=== PATIENT | male | born 2000 | race African-American/Black ===

== ENCOUNTER 2018-03-07 14:55 | Emergency (ER) | payer SELFPAY ==
[~2018-03-07] VITALS: Ht 198.1 cm; Wt 86.0 kg
[2018-03-07 15:01] VITALS: BP 140/83
[2018-03-07] MEDS ORDERED: FAMOTIDINE 20MG TABLET PO STA (15:55)
[2018-03-07] MEDS ORDERED: MAGNESIUM/ALUMINUM HYDROXIDE/SIMETHICONE 30ML UDC PO STA (15:55)
[2018-03-07] MEDS ORDERED: VISCOUS LIDOCAINE 2% 15 ML UDC MM ONE (16:00)
== END 2018-03-07 17:31 | disposition left against medical advice (07) ==
LOC: ER 14:55
DX: R10.9 Unspecified abdominal pain (principal); J45.909 Unspecified asthma, uncomplicated
CPT/HCPCS: 93005; 99284